=== PATIENT | female | born 1955 | race Caucasian/White ===

== ENCOUNTER 2017-01-18 01:44 | Inpatient (IN) | payer BC ==
[~2017-01-18] VITALS: Ht 312.4 cm; Wt 57.0 kg
[2017-01-18] VITALS (35 sets, daily range): BP systolic 80–132; BP diastolic 43–67; PULSE 70–112; RESP 10–20; Ht 312.4 cm; Wt 57.0 kg
[2017-01-18] MEDS: DEXTROSE 5%-0.45% NACL 1,000 ML IV SCH ×3 (02:00→21:50)
[2017-01-18] MEDS: ONDANSETRON 4 MG INJ IV PRN ×3 (02:15→11:30)
[2017-01-18] MEDS: HYDROmorphONE 1 MG/ML SYG IV PRN ×3 (02:16→08:59)
--- NOTE | 2017-01-18 02:27 | ERA ---
ER Documentation Chief Complaint Date/Time DATE: 01/18/17 TIME: 02:18 Chief Complaint ER to ER transfer for left hip and wrist fracture s/p fall, surgery in AM HPI This is a 61-year-old pleasant female who sustained a fall by losing her footing. She fell and was sent to another outside ER where she she was diagnosed with the left wrist Colles' fracture and a right hip fracture. The patient was there for 6 hours while I try to sort out insurance information. The patient was transferred here due to insurance reasons and because her primary care is here. Orthopedic surgeon notified from the outside ER is Dr. Robert. Patient said her pain is now controlled. She had sharp pain in the right hip and left wrist with movement and better with rest. Did not sustain any head injury neck injury chest or back pain ROS All systems reviewed and are negative except as per history of present illness. Allergies Allergies: Coded Allergies: Sulfa (Sulfonamide Antibiotics) (Verified Allergy, Unknown, 01/18/17) FmHx Family History: No coronary disease Physical Exam Vitals Vital Signs Date Time Temp Pulse Resp B/P Pulse Ox O2 Delivery O2 Flow Rate FiO2 01/18/17 01:45 99.2 90 17 124/67 97 Physical Exam Const: Well-developed, well-nourished Head: Atraumatic, normocephalic Eyes: Normal Conjunctiva, PERRLA, EOMI, normal sclera, no nystagmus ENT: Normal External Ears, Nose and Mouth, moist mucus membranes. Neck: Full range of motion. No meningismus, no lymphadenopathy. Resp: Clear to auscultation bilaterally, no wheezing, rhonchi, rales Cardio: Regular rate and rhythm, no murmurs, S1 S2 present Abd: Soft, non tender x 4, non distended. Normal bowel sounds, no guarding or rebound, no pulsitile abdominal masses or bruits Skin: No petechiae or rashes, no ecchymosis , no maculopapular rash Back: No midline or flank tenderness Ext: No cyanosis, or edema, FROM x 2, right hip with pain with movement better with rest left wrist is in a splint with deformity, normal inspection, neurovascularly intact x 4 Neur: Awake and alert, STR 5/5 x 4, sensation intact x 4, no focal findings, cerebellum intact Psych: Normal Mood and Affect Results 24 hrs Current Medications Medications (Trade) Dose Ordered Sig/Sanju Route PRN Reason Start Time Stop Time Status Last Admin Dose Admin Hydromorphone HCl (Dilaudid) 1 mg Q2H PRN IV PAIN LEVEL 4-7 01/18/17 02:00 01/18/17 02:16 Ondansetron HCl 4 mg 4 mg Q4H PRN IV NAUSEA AND/OR VOMITING 01/18/17 02:00 01/18/17 02:15 Dextrose/Sodium Chloride (D5-1/2ns) 1,000 ml @ 50 mls/hr Q20H IV 01/18/17 02:00 Procedures/MDM EKG: Rate/Rhythm: Normal sinus rhythm with bifascicular block QRS, ST, QT: NORMAL WI, QRS, QT] Impression: NORMAL EKG Admitting doctor has been notified and orders written. Departure Diagnosis: Primary Impression: Closed right hip fracture Qualified Code: S72.001A - Closed right hip fracture, initial encounter Additional Impression: Wrist fracture, left Qualified Code: S62.102A - Wrist fracture, left, closed, initial encounter Condition: Stable TYE EDGAR DO January 18, 2017 02:27
[2017-01-18 02:41] LABS: ADD SCAN DIFF NO
[2017-01-18 02:43] LABS: BASOPHILS % 0.2 % (0.0-2.0); EOSINOPHILS % 0.1 % (0.0-7.0); HEMATOCRIT 35.1 % (37.0-47.0); HEMOGLOBIN 11.5 g/dl (12.0-16.0); LYMPHOCYTES # 0.8 10^3/ul (0.8-2.9); LYMPHOCYTES % 9.9 % (15.0-51.0); MEAN CORPUSCULAR HGB CONC 32.8 g/dl (32.0-37.0); MEAN CORPUSCULAR VOLUME 88.6 fl (82.0-101.0); MONOCYTE # 0.3 10^3/ul (0.3-0.9); MONOCYTES % 3.7 % (0.0-11.0); NEUTROPHIL # 6.9 10^3/ul (1.6-7.5); NEUTROPHILS % 85.7 % (39.0-77.0); PLATELET COUNT 156 10^3/UL (140-415); RED BLOOD COUNT 3.96 10^6/ul (4.20-5.40)
[2017-01-18 02:59] LABS: CREATININE 0.75 mg/dl (0.44-1.00); INR 0.97; PROTIME 12.9 Sec (12.2-14.2)
[2017-01-18] MEDS ORDERED: OXYC-279 PO (02:59)
[2017-01-18] MEDS ORDERED: ONDA4TAB14 PO (02:59)
[2017-01-18 03:00] LABS: CALCIUM 9.1 mg/dl (8.4-10.2); PARTIAL THROMBOPLASTIN TIME 26.4 Sec (25.0-35.0)
--- NOTE | 2017-01-18 04:23 | RADRPT ---
PROCEDURE: XR Chest. CLINICAL INDICATION: Preoperative evaluation prior to general anesthesia TECHNIQUE: Portable single view of the chest COMPARISON: None. FINDINGS: The heart size is top normal. Slight aortic calcification is seen. No acute infiltrate, pleural ef fusion, or overt congestive heart failure is seen. Minimal degenerative change of the spine. IMPRESSION: No definite acute pulmonary disease. . Slight aortic calcification. RPTAT: HLBE Lani Mo Physician Date Time Electronically viewed and signed by Lani Mo, Physician on 01/18/2017 04:22 SARAH/
[2017-01-18] MEDS ORDERED: EXPAREL NOTE (BUPIVICAINE LIPOSOMAL) XX SCH (07:30)
[2017-01-18] MEDS ORDERED: PREGABALIN 300 MG PO X1 PO ONE (07:30)
[2017-01-18] MEDS ORDERED: traMADOL 50 MG TAB X 1 DOSE PO ONE (07:30)
[2017-01-18] MEDS ORDERED: CEFAZOLIN 2GM/50 ML (PMX) 50 ML X1 BEFORE INCISION IVPB ONE (07:30)
[2017-01-18] MEDS ORDERED: CEFAZOLIN 2 GM/50 ML (PMX) 50 ML IVPB ONE (07:30)
[2017-01-18] MEDS ORDERED: BUPIVACAINE LIPOSOME/PF 266 MG/20 ML VIAL INFIL ONE (07:30)
[2017-01-18] MEDS ORDERED: PAIN COCKTAIL-CEFUROXIME IRR ONE ×7 (07:30)
[2017-01-18] MEDS ORDERED: oxyCODONE (CR) 10 MG TAB [oxyCONTIN] X1 DOSE PO ONE (07:30)
[2017-01-18] MEDS ORDERED: TRANEXAMIC ACID 570 MG in SOD CHLORIDE 0.9% 100 ML IVPB ONE ×6 (07:30→21:30)
[2017-01-18] MEDS ORDERED: LACTATED RINGER'S 1,000 ML IV SCH (07:30)
--- NOTE | 2017-01-18 08:37 | RADRPT ---
PROCEDURE: CT of the left hip CLINICAL INDICATION: Left hip pain, fracture TECHNIQUE: Axial images through the left hip without IV contrast. Coronal and sagittal reformats . Images were interpreted at an independent PACS workstation. CTDI 18.30 mGy DLP 440.32 mGy-cm One or more of the following dose reduction techniques were used: Automated exposure control Adjustment of the mA and / or kV according to patient size Use of iterative reconstruction technique. COMPARISON: Radiographs of the pelvis and left hip performed same day FINDINGS: There is an acute impacted very minimally-displaced subcapital femoral neck fracture (coronal 112, s agittal 11, axial 29). The fracture line involves both the medial and lateral cortices, with approx imately 2-3 mm of cortical offset laterally and no significant cortical offset medially. There are mild background degenerative changes of the left hip with small marginal osteophytes. The re is no additional fracture identified. There is no evidence of dislocation. There is a very smal l left hip joint effusion There is a Butler catheter in the bladder. There is no lymphadenopathy. There is sigmoid diverticul osis. Limited intrapelvic evaluation is otherwise unremarkable. IMPRESSION: 1. Acute impacted very minimally displaced subcapital femoral neck fracture as above. RPTAT: UU .Martin Nagel MD, MD Date Time Electronically viewed and signed by .Martin Nagel MD, MD on 01/18/2017 08:36 .K/
--- NOTE | 2017-01-18 08:55 | RADRPT ---
PROCEDURE: XR Pelvis. CLINICAL INDICATION: Injury TECHNIQUE: Single AP view performed. COMPARISON: No prior studies are available for comparison. FINDINGS: There is diffuse osteopenia. There is an acute minimally displaced left subcapital femoral fracture . The hip joints are unremarkable. The sacroiliac joints are unremarkable. The soft tissues are unr emarkable. IMPRESSION: Diffuse osteopenia Acute minimally displaced left subcapital femoral fracture RPTAT: HGDB .Adalid Mercado MD, MD Date Time Electronically viewed and signed by .Adalid Mercado MD, on 01/18/2017 08:55 .B/
--- NOTE | 2017-01-18 08:56 | RADRPT ---
PROCEDURE: XR left hip. CLINICAL INDICATION: Injury TECHNIQUE: AP and lateral views available for review. COMPARISON: None available FINDINGS: There is diffuse osteopenia. There is an acute minimally displaced left subcapital femoral fracture . The hip joints are unremarkable. The sacroiliac joints are unremarkable. The soft tissues are unr emarkable. IMPRESSION: Diffuse osteopenia Acute minimally displaced left subcapital femoral fracture RPTAT: HGDB .Adalid Mercado MD, MD Date Time Electronically viewed and signed by .Adalid Mercado MD, on 01/18/2017 08:55 .B/
--- NOTE | 2017-01-18 08:57 | RADRPT ---
PROCEDURE: XR left wrist. CLINICAL INDICATION: Wrist pain TECHNIQUE: Three views are available for review. COMPARISON: No prior studies are available for comparison. FINDINGS: A splint is in place. There is an acute nondisplaced impacted distal radial fracture .There is an a cute ulnar styloid avulsion fracture. The osseous structures are otherwise normal in mineralization, architecture and alignment. No osseo us lesions are identified. The joints are unremarkable. There is mild soft tissue swelling. IMPRESSION: Acute nondisplaced impacted distal radial fracture Acute ulnar styloid avulsion fracture RPTAT: HGDB .Adalid Mercado MD, Date Time Electronically viewed and signed by .Adalid Mercado MD, on 01/18/2017 08:57 .B/
--- NOTE | 2017-01-18 09:59 | PREOPHP ---
DATE OF ADMISSION: 01/18/2017 REASON FOR ADMISSION: Fall with left hip fracture and left wrist fracture. HISTORY OF PRESENT ILLNESS: This 61-year-old female fell yesterday after she lost her footing and tripped . She was taken to [facility] emergency room , where she was evaluated and found to have an impacted left hip fracture and left wrist Colles fracture. The patient was transferred here to [facility] for surgery to be done by Dr. Vitaliy Guthrie. The patient at this time is awake and alert. She is able to tell me her history. She says that she has had a history of mitral valve prolapse for years with mitral regurgitation. She sees Dr. Jamil Lam , a motorcycle technician , in [place] for her cardiac care . I do have her records from Dr. Lam's office . The patient is under the primary care of Dr. Spencer Joshi and I have spoken to him about her . The patient denies any chest pain or shortness of breath. She is being medicated for left hip and left wrist pain and seems comfortable . PAST MEDICAL HISTORY: Remarkable for: 1. Mitral valve prolapse with 2 to 3+ mitral regurgitation, mild tricuspid regurgitation. 2. History of recurrent acute diverticulitis. 3. Generalized anxiety disorder SURGICAL HISTORY 1. C-sections X 2 2. Rhinoplasty 3. Cosmetic eye surgery 4. Tonsillectomy age 1 ALLERGIES: SHE HAS AN ALLERGY TO SULFA DRUGS FAMILY HISTORY: Unremarkable. SOCIAL HISTORY: she does not smoke , is a former smoker ; drinks alcohol socially ; does not use illicit drugs REVIEW OF SYSTEMS: HEAD: Negative. EARS, NOSE AND THROAT: Negative. CARDIORESPIRATORY: See above, but no recent chest pain or shortness of breath. GASTROINTESTINAL: Negative except for a history of diverticulitis for which she was treated recently, but not currently on antibiotics. NEUROLOGIC: Negative. NEUROMUSCULAR: She denies any head trauma, loss of consciousness, focal neurologic deficits. CURRENT MEDICATIONS: She was on At[place]and but stopped PHYSICAL EXAMINATION: GENERAL: At this time reveals a well-developed female in no apparent distress. VITAL SIGNS: Temperature 99, pulse is 79, respirations 20, blood pressure 110/ 56, O2 saturation 93% on 2 liter nasal cannula. HEENT: Head normocephalic. Eyes: Extraocular muscles intact. Nose and mouth are normal. NECK: Supple. No neck vein distention. LUNGS: Clear to auscultation. HEART: Regular rhythm with a II/ systolic ejection murmur at the apex and radiates to the left axilla. ABDOMEN: Soft, nontender, no masses or megaly. EXTREMITIES: No peripheral edema. Pedal pulses are 2+ bilaterally. NEUROLOGIC: Grossly intact. No obvious focal neurologic deficits. DIAGNOSTIC DATA: Her EKG shows evidence of a right bundle branch block pattern and left anterior fascicular block. I did compare the previous EKG done on to the current EKG and there was no difference between the 2 EKG's IMPRESSION: This patient sustained a fall yesterday with a left hip fracture and left wrist fracture. She has been followed by Dr. Jamil Lam, a motorcycle technician in [place], and has been stable from a cardiac standpoint. She is cleared for surgery today. I will follow the patient along with you. Dictated By: WINDY TORRES MD, ND/NO Conf#: [id number] DID#: [id number] MTDChristelle
[2017-01-18] MEDS ORDERED: VANCOMYCIN 1 GM INJ ONE (11:36)
[2017-01-18] MEDS ORDERED: POLYMYXIN B 500000 UNIT INJ ONE (11:36)
[2017-01-18] MEDS ORDERED: METOCLOPRAMIDE 10 MG INJ IV ONE (12:00)
[2017-01-18] MEDS ORDERED: DEXAMETHASONE 4 MG/ML 1 ML INJ ONE (12:12)
[2017-01-18] MEDS ORDERED: CEFAZOLIN 1 GM INJ ONE (12:12)
[2017-01-18] MEDS ORDERED: METOCLOPRAMIDE 10 MG INJ ONE (12:12)
[2017-01-18] MEDS ORDERED: PROPOFOL 100 ML ONE (12:12)
[2017-01-18] MEDS ORDERED: FENTAnyl 50 MCG/ML VIAL ONE ×2 (12:12→12:28)
[2017-01-18] MEDS ORDERED: MIDAZOLAM 1 MG/ML 2 ML INJ ONE (12:12)
[2017-01-18 12:47] LABS: ADD UMIC YES; URINE BILIRUBIN (Dip) NEGATIVE (NEGATIVE); URINE BLOOD (Dip) 1+ (NEGATIVE); URINE COLOR LT. YELLOW (YELLOW); URINE GLUCOSE (Dip) NEGATIVE (NEGATIVE); URINE KETONES (Dip) NEGATIVE (NEGATIVE); URINE LEUKOCYTE ESTERASE (Dip) NEGATIVE (NEGATIVE); URINE NITRITE (Dip) NEGATIVE (NEGATIVE); URINE TOTAL PROTEIN (Dip) NEGATIVE (NEGATIVE); URINE UROBILINOGEN (Dip) 0.2 E.U./dL (0.1-1.0)
[2017-01-18] MEDS ORDERED: PHENYLephrine (100 MCG/ML) 5ML SYG ONE (13:08)
[2017-01-18] MEDS ORDERED: EPHEDrine SULFATE 50 MG/5 ML SYG IV PRN (13:19)
[2017-01-18 13:24] LABS: BACTERIA,URINE FEW; MUCUS,URINE FEW
--- NOTE | 2017-01-18 13:26 | CONS ---
DATE OF ADMISSION: 01/18/2017 DATE OF CONSULTATION: 01/18/2017 REASON FOR CONSULTATION: Left hip fracture. HISTORY OF PRESENT ILLNESS: The patient is a 61-year-old woman who had a mechanical fall yesterday in which she landed on her left hip. She has had pain in the left groin since the fall. She has been unable to bear weight on the left lower extremity. Prior to this event she had been ambulatory without a cane or a walker. She also fell on her left wrist at the time and was noted to have a left distal radius fracture, which was splinted. She was taken to [facility] Emergency Room, where she was stabilized and then transferred to [facility]. She has had no reported loss of consciousness. PAST MEDICAL HISTORY: History of diverticulitis. PAST SURGICAL HISTORY: section x2. MEDICATIONS: Atacand. ALLERGIES: NO KNOWN DRUG ALLERGIES. SOCIAL HISTORY: The patient does not smoke or drink. FAMILY HISTORY: Noncontributory. REVIEW OF SYSTEMS: GENERAL/CONSTITUTIONAL: Negative for recent fevers, chills, decreased appetite , fatigue, or unexplained weight loss. EYES/EARS/NOSE/MOUTH/THROAT: Negative for headaches, double vision, tearing, nose bleeding, colds, obstruction, discharge, dental difficulties, gingival bleeding, dentures, neck stiffness, pain, tenderness, or masses in thyroid or other areas. CARDIOVASCULAR: Negative for chest pain, palpitations, irregular heartbeat, syncope, dyspnea on exertion, orthopnea, nocturnal paroxysmal dyspnea. RESPIRATORY: Negative for shortness of breath, wheezing, stridor, hemoptysis, tuberculosis, fever, or night sweats. GASTROINTESTINAL: Negative for dysphagia, abdominal pain, heartburn, nausea, vomiting, hematemesis, jaundice, constipation, diarrhea, abnormal stools (elizabeth- colored, tarry, bloody, greasy, foul-smelling), or bright red blood per rectum. GENITOURINARY: Negative for urgency, frequency, dysuria, nocturia, hematuria, stones, infections, nephritis, hesitancy, change in size of stream, dribbling, acute retention, or incontinence. MUSCULOSKELETAL: Negative for pain, swelling, redness or heat of muscles or joints, limitation of motion, muscular weakness, atrophy, or cramps. NEUROLOGIC/PSYCHIATRIC: Negative for convulsions, paralyses, tremor, incoordination, paresthesias, difficulties with memory or speech, sensory or motor disturbances, muscular coordination (ataxia, tremor), emotional problems, anxiety, depression, previous psychiatric care, unusual perceptions, or hallucinations. HEMATOLOGIC: Negative for anemia, bleeding tendency, previous transfusions and reactions, or Rh incompatibility. ENDOCRINE: Negative for polydipsia, polyuria, hormone therapy, or intolerance to heat or cold. PHYSICAL EXAMINATION: VITAL SIGNS: Temperature 98.7, blood pressure 116/58, pulse 95, respiratory rate 18. GENERAL APPEARANCE: Well-developed, well-nourished female in no acute distress. ORIENTATION: Alert and oriented to person, place, and time. HEENT: Normocephalic, atraumatic, sclerae anicteric, no nasal discharge, oropharynx clear, dentition is good. SKIN: Normal color, texture, and turgor. No rashes noted throughout the trunk, bilateral upper extremities, and bilateral lower extremities. NECK: Supple, nontender, without lymphadenopathy. No thyromegaly, no masses. CARDIAC: Regular rate and rhythm. LUNGS: Clear to auscultation bilaterally, with symmetric chest rise. ABDOMEN: Soft, nontender, nondistended. MUSCULOSKELETAL EXAM: The left wrist is splinted, with mild tenderness over the distal radius. The neurovascular exam in the left upper extremity is normal. Her pelvis is stable to compression and rocking. The left hip has pain with attempted passive range of motion. The he left hip skin is intact. Thigh is soft. The right hip is supple. No pain on passive range of motion. Both knees are supple, with no pain on passive range of motion. NEUROVASCULAR EXAM,LOWER EXTREMITY: Motor strength is 5/5 in the quadriceps, tibialis anterior, extensor hallucis longus, gastroc-soleus, and peroneals bilaterally. Sensation is intact to light touch throughout both lower extremities. There are 2+ palpable dorsalis pedis and posterior tibial pulses, with capillary refill less than 2 seconds in all 5 digits bilaterally. There is no distal edema. IMAGING: X-rays brought on a disk from [facility] dated 01/17/2017 include an AP pelvis and lateral view of the left hip. The quality is somewhat poor. There does appear to be a valgus impacted femoral neck fracture with some displacement, but the image quality is not ideal. There is also a comminuted distal radius fracture with some mild impaction, but on the lateral view the alignment is neutral. LABORATORY DATA: Reveals a white blood cell count of 8.0, hematocrit 35.1, platelet count 156. INR 0.97, PTT 26.4. BUN 15, creatinine 0.75. ASSESSMENT AND PLAN: 1. Left femoral neck fracture. 2. Left distal radius fracture. DISCUSSION: The patient has a left femoral neck fracture which will require surgical intervention. The images brought in on CD are suboptimal. I am going to repeat x-rays here, including an AP pelvis and lateral view of the left hip, as well as a CT scan with 3-mm cuts with sagittal and coronal reconstructions. If there is displacement, then I would recommend proceeding with an anterior total hip arthroplasty. If there is no displacement, then this may be amenable to pinning with 3 cannulated screws. We will keep the patient n.p.o. in anticipation of surgery later today. If we proceed with hip replacement surgery , I have explained the risks of surgery to include, but not be limited to, bleeding and possible need for blood transfusion, infection, pain, stiffness, neurovascular injury, possible numbness, weakness, and/or paralysis anywhere from the hip down to the toes, fracture, instability, dislocation, leg length inequality, wear and/or loosening of the prosthesis, need for revision at a later date, wound healing problems, blood clots, pulmonary embolism, and anesthetic complications such as heart attack, stroke, GI bleed, pneumonia and/ or . Ample time was allowed for the patient to ask questions, all of which were addressed and answered. She understands the risks and wishes to proceed. If we proceed with pinning, I have explained the risks to include, but not be limited to, bleeding, infection, pain, stiffness, malunion, nonunion , need for additional future surgery including conversion to a total hip arthroplasty, wound healing problems, blood clots, pulmonary embolism, and anesthetic complications such as heart attack, stroke, GI bleed, pneumonia and/ or . We will keep her n.p.o. She will be evaluated by Dr. Torres for preoperative medical clearance. As for the left distal radius fracture, I will keep her splinted for now. I am going to ask one of my colleagues who is an upper extremity specialist to see her for further evaluation and decision- making as to whether this needs surgical intervention or not. Dictated By: TANIKA SALINAS MD EZ/NTS Conf#: [id number] DID#: [id number] CC: WINDY TORRES MD;*EndCC* MTDD
[2017-01-18] MEDS ORDERED: EPHEDrine SULFATE 50 MG/5 ML SYG ONE (13:27)
[2017-01-18] MEDS ORDERED: BACITRACIN 50000 UNITS INJ IRR ONE (14:46)
[2017-01-18] MEDS ORDERED: DIPHENHYDRAMINE 50 MG INJ IV PRN (15:00)
[2017-01-18] MEDS ORDERED: METOCLOPRAMIDE 10 MG INJ IV PRN (15:00)
[2017-01-18] MEDS ORDERED: ONDANSETRON 4 MG INJ IV PRN ×2 (15:00→15:30)
[2017-01-18] MEDS ORDERED: MEPERIDINE 25 MG INJ IV PRN (15:00)
[2017-01-18] MEDS ORDERED: HYDROmorphONE (0.2 MG/ML) 10ML SYG IV PRN ×3 (15:00)
[2017-01-18] MEDS: traMADol 50 MG TAB PO SCH ×2 (15:00→18:00)
--- NOTE | 2017-01-18 15:08 | OPR ---
Date/Time of Note Date/Time of Note DATE: 01/18/17 TIME: 15:07 Operative Report Free Text/Dictation Dictation # [id number] Procedure Date: January 18, 2017 Preoperative Diagnosis Left Femoral Neck Fracture Postoperative Diagnosis Same Operation Performed Left Anterior JUVE Surgeon: TANIKA SALINAS MD assistant prosecuting attorney: LUKE LAMAS PA-C Anesthesia: general, spinal Anesthesiologist: CRYSTAL GOODSON MD Estimated Blood Loss: 250 - 300 ml's Specimens Femoral Head Tubes/Drains Hemovac x 1 Complications: None Pt Condition Post Procedure: stable Disposition: PACU TANIKA SALINAS MD January 18, 2017 15:08
--- NOTE | 2017-01-18 15:16 | OPR ---
DATE OF OPERATION: 01/18/2017 PREOPERATIVE DIAGNOSIS: Left femoral neck fracture. POSTOPERATIVE DIAGNOSIS: Left femoral neck fracture. OPERATION PERFORMED: Left anterior total hip arthroplasty. SURGEON: Tanika Guthrie MD FABRICATION LEAD: LUKE LINTON. COMPONENTS USED: DePuy size 48 mm Gription Watson cup, 48/32 neutral AltrX polyethylene liner, size 4 standard Actif stem, 32+9 ceramic head. ANESTHESIA: Spinal plus general endotracheal intubation plus periarticular injection. ANESTHESIOLOGIST: CRYSTAL GOODSON MD. ESTIMATED BLOOD LOSS: 300 mL. INTRAVENOUS FLUIDS: Two liters of crystalloid. SPECIMENS: Femoral head. DRAINS: Hemovac x1. COMPLICATIONS: None. DISPOSITION: The patient tolerated procedure well in stable condition. INDICATIONS: The patient is a 61-year-old woman who had a mechanical fall and sustained a minimally displaced left subcapital femoral neck fracture. I felt she would benefit from a total hip arthroplasty through an anterior approach. I felt the patient would benefit from a total hip arthroplasty through an anterior approach. The risks, benefits, and alternatives of the procedure were explained in detail to the patient. I explained the risks of the surgery to include, but not be limited to: bleeding and possible need for blood transfusion; infection; pain; stiffness; neurovascular injury with possible numbness, weakness, and/or paralysis anywhere from the hip down to the toes; fracture; instability; dislocation; leg length inequality; wear and/or loosening of the prosthesis and possible need for future revision; blood clots; pulmonary embolism; and anesthetic complications such as heart attack, stroke, GI bleed, pneumonia, and/ or . Ample time was allowed for the patient to ask questions, all of which were addressed and answered. The patient understood the risks involved and wished to proceed. Informed consent was signed prior to the procedure. PROCEDURE: The patient's left hip was initialed with a marking pen in the preoperative area to identify the correct operative site. The patient was brought to the operating room and [facility] where a spinal anesthetic was administered. The patient was then anesthetized and intubated. A Butler catheter was placed. Both feet were placed into well padded boots which were then placed into the leg holders of the traction booms. A timeout was performed to confirm that the left side was the correct operative site. The patient was given 2 g of intravenous Ancef within one hour prior to the procedure. The operative hip was prepped and draped in the usual sterile fashion. A 10 cm oblique incision was made over the anterior aspect of the hip and carried down through subcutaneous tissue and fat with sharp dissection. The tensor fascia devan was incised along the length of the wound. The tensor fascia muscle was retracted laterally and the sartorius medially. The anterior circumflex vessels were identified and tied off with 2-0 silk suture and coagulated with the [employer] Link computer education teacher. The rectus femoris was elevated off the anterior capsule and an anterior capsulectomy performed. The femoral neck fracture was identified. A femoral neck osteotomy was made and the head removed from the acetabulum. Retractors were placed around the acetabulum. The remnants of the labrum and ligamentum teres were excised. I reamed the acetabulum to the medial wall and then went into an anatomic position and increased the reamer size in 2 mm increments until I got a good bite and was down to bleeding subchondral bone. The Watson cup was opened and impacted into the acetabulum and sat flush circumferentially, getting a good bite. C-arm imaging showed it had about 40 to 45 degrees of abduction and 20 degrees of anteversion. The real liner was opened and impacted into the acetabulum and sat flush circumferentially. Attention was turned towards the femur. The operative leg was carefully lowered to the floor with the leg adducted. The foot was then externally rotated to approximately 110 degrees. A posteromedial release was performed to optimize exposure. The femoral hook was placed underneath the proximal femur and the hydraulic lift was then used to elevate the femur up out of the wound. The cookie cutter osteotome was used to remove the remaining overhanging greater trochanter. The femur was then broached, going up in one size increments until it sat flush with the neck cut and a stable fit was achieved. The trial neck and head were assembled and reduced into the acetabulum. Fluoroscopic imaging showed the components to be in good position and the leg lengths and offsets to be equal. At this point, the trial was dislocated and the trial broach removed. The canal was irrigated and dried. The real stem was opened and impacted into the femur. The trunnion was irrigated and dried, and the real femoral head was impacted onto the trunnion, and reduced into the acetabulum. The soft tissues were infiltrated with a mixture of 150 mg of 0.5% Bupivacaine, 8 mg of Duramorph, 300 mcg of epinephrine, 30 mg of Toradol, 100 mcg of clonidine, 750 mg of cefuroxime and 86 mL of normal saline, followed by an injection of 266 mg of liposomal Bupivacaine. At this point the hip was irrigated with a mixture of betadine/saline and then antibiotic saline with pulsatile lavage. A Hemovac drain was placed in the deep portion of the wound and brought out the anterolateral thigh. There was good hemostasis. The tensor fascia devan was repaired with a running #1 Vicryl. The deep fat layer was irrigated and closed with 2-0 Stratafix and the subcutaneous layer closed with 3 -0 Vicryl and the skin was closed with joe and then sealed with Dermabond. The drain was secured with 3-0 nylon. The sponge and needle counts were correct at the end of the case. The wound was covered with an occlusive dressing. The patient was awakened, extubated, and taken to the recovery room in stable condition. Dictated By: TANIKA ALMEIDA/NO Conf#: [id number] DID#: [id number] KAITY
[2017-01-18] MEDS ORDERED: NA PHOSPHATE/BIPHOS 133 ML ENEMA PR PRN (15:30)
[2017-01-18] MEDS ORDERED: ASPIRIN (EC) 325 MG TAB PO ONE (15:30)
[2017-01-18] MEDS ORDERED: BISACODYL 10 MG SUPP PR PRN (15:30)
[2017-01-18] MEDS ORDERED: MAGNESIUM HYDROXIDE 30ML CUP PO PRN (15:30)
[2017-01-18] MEDS ORDERED: NACL 0.9% 3 ML SYG IV SCH (15:30)
[2017-01-18] MEDS ORDERED: DIPHENHYDRAMINE 25 MG CAP PO PRN (15:30)
[2017-01-18] MEDS ORDERED: HYDROCODONE/APAP (5/325) TAB PO PRN ×2 (15:30)
[2017-01-18] MEDS ORDERED: BACITRACIN 50000 UNITS INJ ONE (15:52)
[2017-01-18 16:12] LABS: HEMATOCRIT 30.6 % (37.0-47.0); HEMOGLOBIN 9.9 g/dl (12.0-16.0)
--- NOTE | 2017-01-18 16:23 | RADRPT ---
PROCEDURE: XR Hip. CLINICAL INDICATION: Postoperative examination TECHNIQUE: AP view of the left hip was performed. COMPARISON: 01/18/2017 FINDINGS: The patient is status post left total hip arthroplasty. Hardware appears intact and in appropriate position. There is overlying subcutaneous gas, and a surgical drain. There are skin joe. IMPRESSION: Status post left hip arthroplasty. Intact hardware and near anatomic alignment. RPTAT: DD .Federico Munoz MD, MD Date Time Electronically viewed and signed by .Federico Munoz MD, on 01/18/2017 16:22 .T/
--- NOTE | 2017-01-18 16:25 | RADRPT ---
PROCEDURE: XR Pelvis. CLINICAL INDICATION: Postoperative, left hip arthroplasty TECHNIQUE: Single AP view of the pelvis. COMPARISON: 01/18/2017 FINDINGS: There is diffuse bony demineralization. The patient is status post left hip arthroplasty. Hardware is intact and appropriate in position. There is overlying subcutaneous gas and a surgical drain. The sacroiliac joints are normal. IMPRESSION: Status post left hip arthroplasty. Intact hardware and near anatomic alignment. RPTAT: DD .Federico Munoz MD, MD Date Time Electronically viewed and signed by .Federico Munoz MD, MD on 01/18/2017 16:24 .T/
[2017-01-18 16:26] LABS: POTASSIUM 4.2 mmol/L (3.5-5.1)
--- NOTE | 2017-01-18 16:27 | RADRPT ---
PROCEDURE: Intraoperative fluoroscopic examination, LT HIP REPLACEMENT CLINICAL INDICATION: Left hip fracture TECHNIQUE: Multiple fluoroscopic views of the left hip were obtained intraoperatively COMPARISON: X-ray 01/18/2017 FINDINGS: 12 fluoroscopic images of the left hip are stored, demonstrating placement of a left hip arthroplast y.. A total of 0.6 minutes of fluoroscopic time was utilized. IMPRESSION: Fluoroscopic guidance for left hip arthroplasty. RPTAT: DD .Federico Munoz MD, Date Time Electronically viewed and signed by .Federico Munoz MD, on 01/18/2017 16:26 .T/
[2017-01-18 16:28] LABS: CREATININE 0.78 mg/dl (0.44-1.00)
[2017-01-18 16:29] LABS: CALCIUM 8.5 mg/dl (8.4-10.2)
--- NOTE | 2017-01-18 17:33 | PN ---
Date/Time of Note Date/Time of Note DATE: 01/18/17 TIME: 17:32 Assessment/Plan Lines/Catheters IV Catheter Type (from Nrsg): Saline Lock Francois in Place (from Nrsg): Yes Assessment/Plan Assessment/Plan Stable in PACU, s/p left anterior JUVE -continue Ancef -pain meds as needed -ASA/SCDs for DVT prophylaxis -OOB with PT -monitor drain -check AM labs -d/c francois in AM XR of the left hip is pending at this time Subjective 24 Hr Interval Summary Stable in PACU. Minimal pain. Moving all extremities. Exam/Review of Systems Vital Signs Vitals Vital Signs Date Time Temp Pulse Resp B/P Pulse Ox O2 Delivery O2 Flow Rate FiO2 01/18/17 16:25 102 13 117/62 100 Nasal Cannula 3.0 01/18/17 15:38 98.0 Intake and Output 01/17/17 01/17/17 01/18/17 15:00 23:00 07:00 Intake Total 90 ml Output Total 350 ml Balance -260 ml Exam Free Text/Dictation Hemovac: minimal Dressing dry Incision clean, dry, and intact without redness or drainage 12/29 Quadriceps, Tibialis Anterior, EHL, Gastroc, Soleus, Peroneals Normal sensation Palpable DT/PT, CR <2 sec No distal edema Results Result Diagram: 01/18/17 1606 01/18/17 1606 LUKE LAMAS PA-C January 18, 2017 17:33
[2017-01-18] MEDS: CEFAZOLIN 2 GM/50 ML (PMX) 50 ML IVPB SCH (17:52)
[2017-01-18] MEDS: LACTATED RINGER'S 1,000 ML IV SCH ×2 (17:54→23:18)
[2017-01-18] MEDS: PANTOPRAZOLE (EC) 40 MG TAB PO SCH (18:00)
[2017-01-18] MEDS: DOCUSATE SODIUM 100 MG CAP PO SCH (21:00)
[2017-01-19] MEDS: traMADol 50 MG TAB PO SCH ×5 (00:06→23:22)
[2017-01-19] MEDS: CEFAZOLIN 2 GM/50 ML (PMX) 50 ML IVPB SCH ×2 (00:10→08:34)
[2017-01-19 04:57] LABS: HEMATOCRIT 25.7 % (37.0-47.0); HEMOGLOBIN 8.4 g/dl (12.0-16.0)
[2017-01-19 05:21] LABS: CALCIUM 8.7 mg/dl (8.4-10.2); CREATININE 0.74 mg/dl (0.44-1.00); POTASSIUM 4.3 mmol/L (3.5-5.1)
[2017-01-19] MEDS: PANTOPRAZOLE (EC) 40 MG TAB PO SCH ×2 (05:34→17:37)
[2017-01-19] MEDS: LACTATED RINGER'S 1,000 ML IV SCH ×4 (05:35→23:18)
[2017-01-19 08:00] VITALS: BP 112/56; RESP 18
[2017-01-19] MEDS: DOCUSATE SODIUM 100 MG CAP PO SCH ×2 (08:34→20:38)
[2017-01-19] MEDS: ASPIRIN (EC) 325 MG TAB PO SCH ×2 (08:34→20:38)
--- NOTE | 2017-01-19 09:53 | PN ---
Date/Time of Note Date/Time of Note DATE: 01/19/17 TIME: 09:51 Assessment/Plan Lines/Catheters IV Catheter Type (from Nrsg): Peripheral IV Butler in Place (from Nrsg): Yes Assessment/Plan Assessment/Plan Stable POD #1, s/p left anterior JUVE -d/c Ancef -pain meds as needed -ASA/SCDs for DVT prophylaxis -OOB with PT -drain removed -check AM labs -discharge planning. Will plan to go home upon discharge Subjective 24 Hr Interval Summary No acute overnight events. Having only mild pain. Did not start PT yet. H&H low but will monitor for now. VSS, afebrile. Will plan to go home upon discharge. Exam/Review of Systems Vital Signs Vitals Vital Signs Date Time Temp Pulse Resp B/P Pulse Ox O2 Delivery O2 Flow Rate FiO2 01/19/17 08:00 98.3 89 18 112/56 99 01/19/17 03:02 2.0 01/18/17 22:15 Nasal Cannula Intake and Output 01/18/17 01/18/17 01/19/17 15:00 23:00 07:00 Intake Total 211.4 ml 2161.4 ml 1875 ml Output Total 500 ml 900 ml Balance 211.4 ml 1661.4 ml 975 ml Exam Free Text/Dictation Dressing dry Incision clean, dry, and intact without redness or drainage 12/29 Quadriceps, Tibialis Anterior, EHL, Gastroc, Soleus, Peroneals Normal sensation Palpable DT/PT, CR <2 sec No distal edema Results Result Diagram: 01/19/17 04301/19/17 043 LUKE LAMAS PA-C January 19, 2017 09:52
--- NOTE | 2017-01-19 09:55 | CONS ---
Date/Time of Note Date/Time of Note DATE: 01/19/17 TIME: 09:50 Assessment/Plan Assessment/Plan Chief Complaint/Hosp Course 1. she is 1 day post op a L JUVE for hip fracture . VS are stable 2. she is doing well and is going to start PT now . 3. H/H is lower , will recheck tomorrow . Problems: Consultation Date/Type/Reason Admit Date/Time January 18, 2017 at 02:08 Initial Consult Date 24 HR Interval Summary Free Text/Dictation She is awake and alert . She is feeling better .She is having pain in L wrist . Exam/Review of Systems Vital Signs Vitals Vital Signs Date Time Temp Pulse Resp B/P Pulse Ox O2 Delivery O2 Flow Rate FiO2 01/19/17 08:00 98.3 89 18 112/56 99 01/19/17 03:02 2.0 01/18/17 22:15 Nasal Cannula Intake and Output 01/18/17 01/18/17 01/19/17 15:00 23:00 07:00 Intake Total 211.4 ml 2161.4 ml 1875 ml Output Total 500 ml 900 ml Balance 211.4 ml 1661.4 ml 975 ml Exam Psych: nl mood/affect, no complaints Respiratory: clear to auscultation, normal air movement Cardiovascular: nl pulses, regular rate and rhythm Musculoskeletal: nl extremities to inspection Results Result Diagram: 01/19/17 0432 01/19/17 0432 Results 24 hrs Laboratory Tests Test 01/18/17 10:00 01/18/17 16:06 01/19/17 04:32 Urine Color LT. YELLOW Urine Clarity CLEAR Urine pH 6.0 Urine Specific [place] 1.025 Urine Ketones NEGATIVE Urine Nitrite NEGATIVE Urine Bilirubin NEGATIVE Urine Urobilinogen 0.2 E.U./dL Urine Leukocyte Esterase NEGATIVE Urine Microscopic RBC 2-5 Urine Microscopic WBC 2-5 Urine Epithelial Cells FEW Urine Bacteria FEW Urine Mucus FEW Urine Hemoglobin 1+ H Urine Glucose NEGATIVE Urine Total Protein NEGATIVE Hemoglobin 9.9 L 8.4 L Hematocrit 30.6 L 25.7 L Sodium Level 138 136 Potassium Level 4.2 4.3 Chloride Level 104 106 Carbon Dioxide Level 25 27 Anion Gap 13 7 L Blood Urea Nitrogen 13 12 Creatinine 0.78 0.74 Glucose Level 142 130 Calcium Level 8.5 8.7 Medications Medications Current Medications Hydromorphone HCl 1 mg 1 mg Q2H PRN IV PAIN LEVEL 4-7 Last administered on 01/18 08:59; Admin Dose 1 MG; Start 01/18/17 at 02:00 Dextrose/Sodium Chloride 1,000 ml @ 50 mls/hr Q20H IV Last administered on 03:45; Admin Dose 50 MLS/HR; Start 01/18/17 at 02:00 Lactated Ringer's (Lr) 1,000 ml @ 125 mls/hr Q8H IV Last administered on 05:35; Admin Dose 125 MLS/HR; Start 01/18/17 at 15:18 Tramadol HCl (Ultram) 50 mg Q6 PO Last administered on 01/19/17 05:34; Admin Dose 50 MG; Start 01/18/17 at 15:00; Stop 01/21/17 at 14:59 Acetaminophen/ Hydrocodone Bitart ([place] (5/325)) 1 tab Q4H PRN PO PAIN LEVEL 1 -3; Start 01/18/17 at 15:30 Acetaminophen/ Hydrocodone Bitart ([place] (5/325)) 2 tab Q4H PRN PO PAIN LEVEL 4 -7; Start 01/18/17 at 15:30 Hydromorphone HCl (Dilaudid) 1 mg Q3H PRN IV PAIN LEVEL 8-10; Start 01/18/17 at 15:30 Ondansetron HCl (Zofran Inj) 4 mg Q6H PRN IV NAUSEA AND/OR VOMITING; Start at 15:30 Bisacodyl (Dulcolax Supp) 10 mg Q12H PRN [place] CONSTIPATION; Start 01/18/17 at 15: 30 Magnesium Hydroxide (Milk Of Mag) 30 ml BID PRN PO CONSTIPATION; Start at 15:30 Sodium Biphosphate/ Sodium Phosphate (Fleet Enema) 133 ml DAILY PRN [place] CONSTIPATION; Start 01/18/17 at 15:30 Docusate Sodium (Colace) 100 mg BID PO Last administered on 01/19/17 08:34; Admin Dose 100 MG; Start 01/18/17 at 21:00 Diphenhydramine HCl (Benadryl) 25 mg Q6H PRN PO PRURITUS; Start 01/18/17 at 15: 30 Aspirin (Ecotrin) 325 mg BID PO Last administered on 01/19/17 08:34; Admin Dose 325 MG; Start 01/19/17 at 09:00 Pantoprazole (Protonix Tab) 40 mg BID@06,18 PO Last administered on 01/19/17 05:34; Admin Dose 40 MG; Start 01/18/17 at 18:00 WINDY TORRES MD January 19, 2017 09:55
--- NOTE | 2017-01-19 10:30 | PDOCDIS ---
Discharge Instructions DIAGNOSIS Discharge Diagnosis: s/p left anterior JUVE CONDITION Patient Condition: Good HOME CARE INSTRUCTIONS: Diet Instructions: Regular ACTIVITY: Activity Restrictions: Slowly Increase Activity Rest between Activity Avoid heavy lifting Do not operate Machinery Do not operate Power Tool Avoid Heavy Housework Keep Limb Elevated Bathing Restrictions: Shower FOLLOW UP/APPOINTMENTS Appointments follow up in the office on 01/29/17 OTHER ORDERS: Other Orders: S/P Anterior JUVE Physical Therapy: Three times per week at home x 2 weeks Daily in Rehab/SNF WB STATUS: WBAT Strengthening exercises for both upper and un-operated lower extremities. 1. Gait training with front wheeled walker 2. Wide base gait, no pivot turns. 3. Abductor strengthening. 4. Quadriceps and hamstring strengthening. 5. May switch to cane in contra lateral hand 6 weeks after surgery. 6. Physical Therapy can open case if nursing is not available. 7. Ice Packs while at rest to surgical wound for 20 minutes, 3 times/day. 8. Patient requires mobile SCDs to reduce risk of developing DVT following JUVE. Patient will use the mobile SCDs for 30 days postoperatively. Hip Precautions: No posterior hip precautions. Bathing assistance by home health aide twice weekly if Medicare patient. Occupational Therapy: Evaluation for assistive devices and ADL training. Wound Care: Keep incision dry & covered with Tegaderm until first visit with Dr. Guthrie Anticoagulation Orders: Enteric Coated Aspirin 325 mg po bid x 6 weeks from date of surgery Follow-up:Call for an appointment with Dr. Guthrie in 1 week after discharged from hospital at DME Orders: SALVADOR, 3-in-1 Commode, Mobile SCDs LUKE LAMAS PA-C January 19, 2017 10:30
[2017-01-19] MEDS ORDERED: TRAM50TA2 PO (10:31)
[2017-01-19] MEDS ORDERED: HYDR-3498 PO (10:31)
[2017-01-19] MEDS ORDERED: ASPI325T32 PO (10:31)
[2017-01-19] MEDS ORDERED: PANT40TA4 PO (10:31)
[2017-01-19 13:04] LABS: ADD UMIC YES; URINE BILIRUBIN (Dip) NEGATIVE (NEGATIVE); URINE BLOOD (Dip) NEGATIVE (NEGATIVE); URINE COLOR LT. YELLOW (YELLOW); URINE GLUCOSE (Dip) NEGATIVE (NEGATIVE); URINE KETONES (Dip) NEGATIVE (NEGATIVE); URINE LEUKOCYTE ESTERASE (Dip) TRACE (NEGATIVE); URINE NITRITE (Dip) NEGATIVE (NEGATIVE); URINE TOTAL PROTEIN (Dip) NEGATIVE (NEGATIVE); URINE UROBILINOGEN (Dip) 0.2 E.U./dL (0.1-1.0)
[2017-01-19 13:15] LABS: BACTERIA,URINE RARE; URINE RBCS NONE SEEN /HPF (0)
[2017-01-19] MEDS: HYDROmorphONE 1 MG/ML SYG IV PRN (13:25)
--- NOTE | 2017-01-19 13:59 | PN ---
Date/Time of Note Date/Time of Note DATE: 01/19/17 TIME: 13:56 Assessment/Plan VTE Prophylaxis VTE Prophylaxis Intervention: ambulation Lines/Catheters IV Catheter Type (from Nrsg): Peripheral IV Urinary Cath still in place: Yes Subjective 24 Hr Interval Summary Free Text/Dictation Anesthesia Note: A 61 year female s/p left hip arthroplasty under GA and spinal pod #1 is doing fine. pain is controlled, noN/V, itchng, headache, back pain. care per surgery team Exam/Review of Systems Vital Signs Vitals Vital Signs Date Time Temp Pulse Resp B/P Pulse Ox O2 Delivery O2 Flow Rate FiO2 01/19/17 08:00 98.3 89 18 112/56 99 01/19/17 03:02 2.0 01/18/17 22:15 Nasal Cannula Intake and Output 01/18/17 01/18/17 01/19/17 15:00 23:00 07:00 Intake Total 211.4 ml 2161.4 ml 1875 ml Output Total 500 ml 900 ml Balance 211.4 ml 1661.4 ml 975 ml Results Result Diagram: 01/19/17 0432 01/19/17 0432 Results 24 hrs Laboratory Tests Test 01/18/17 16:06 01/19/17 04:32 01/19/17 05:05 Hemoglobin 9.9 L 8.4 L Hematocrit 30.6 L 25.7 L Sodium Level 138 136 Potassium Level 4.2 4.3 Chloride Level 104 106 Carbon Dioxide Level 25 27 Anion Gap 13 7 L Blood Urea Nitrogen 13 12 Creatinine 0.78 0.74 Glucose Level 142 130 Calcium Level 8.5 8.7 Urine Color LT. YELLOW Urine Clarity CLEAR Urine pH 6.0 Urine Specific [place] <=1.005 L Urine Ketones NEGATIVE Urine Nitrite NEGATIVE Urine Bilirubin NEGATIVE Urine Urobilinogen 0.2 E.U./dL Urine Leukocyte Esterase TRACE H Urine Microscopic RBC NONE SEEN Urine Microscopic WBC 0-2 Urine Bacteria RARE Urine Hemoglobin NEGATIVE Urine Glucose NEGATIVE Urine Total Protein NEGATIVE Medications Medications Current Medications Hydromorphone HCl 1 mg 1 mg Q2H PRN IV PAIN LEVEL 4-7 Last administered on 01/18 08:59; Admin Dose 1 MG; Start 01/18/17 at 02:00 Dextrose/Sodium Chloride 1,000 ml @ 50 mls/hr Q20H IV Last administered on 03:45; Admin Dose 50 MLS/HR; Start 01/18/17 at 02:00 Lactated Ringer's (Lr) 1,000 ml @ 125 mls/hr Q8H IV Last administered on 05:35; Admin Dose 125 MLS/HR; Start 01/18/17 at 15:18 Tramadol HCl (Ultram) 50 mg Q6 PO Last administered on 01/19/17 05:34; Admin Dose 50 MG; Start 01/18/17 at 15:00; Stop 01/21/17 at 14:59 Acetaminophen/ Hydrocodone Bitart ([place] (5/325)) 1 tab Q4H PRN PO PAIN LEVEL 1 -3; Start 01/18/17 at 15:30 Acetaminophen/ Hydrocodone Bitart ([place] (5/325)) 2 tab Q4H PRN PO PAIN LEVEL 4 -7; Start 01/18/17 at 15:30 Hydromorphone HCl (Dilaudid) 1 mg Q3H PRN IV PAIN LEVEL 8-10 Last administered on 01/19/17 13:25; Admin Dose 1 MG; Start 01/18/17 at 15:30 Ondansetron HCl (Zofran Inj) 4 mg Q6H PRN IV NAUSEA AND/OR VOMITING; Start at 15:30 Bisacodyl (Dulcolax Supp) 10 mg Q12H PRN [place] CONSTIPATION; Start 01/18/17 at 15: 30 Magnesium Hydroxide (Milk Of Mag) 30 ml BID PRN PO CONSTIPATION; Start at 15:30 Sodium Biphosphate/ Sodium Phosphate (Fleet Enema) 133 ml DAILY PRN [place] CONSTIPATION; Start 01/18/17 at 15:30 Docusate Sodium (Colace) 100 mg BID PO Last administered on 01/19/17 08:34; Admin Dose 100 MG; Start 01/18/17 at 21:00 Diphenhydramine HCl (Benadryl) 25 mg Q6H PRN PO PRURITUS; Start 01/18/17 at 15: 30 Aspirin (Ecotrin) 325 mg BID PO Last administered on 01/19/17 08:34; Admin Dose 325 MG; Start 01/19/17 at 09:00 Pantoprazole (Protonix Tab) 40 mg BID@06,18 PO Last administered on 01/19/17t 05:34; Admin Dose 40 MG; Start 01/18/17 at 18:00 CRYSTAL GOODSON MD January 19, 2017 13:59
[2017-01-19] MEDS: DEXTROSE 5%-0.45% NACL 1,000 ML IV SCH (18:00)
[2017-01-19 20:09] VITALS: BP 103/54; PULSE 98; RESP 18
[2017-01-19 21:42] VITALS: BP 105/68; RESP 18
[2017-01-19] MEDS: ACETAMINOPHEN 325 MG TAB PO PRN (22:33)
[2017-01-19] MEDS: LEVOFLOXACIN 500 MG TAB PO SCH (22:33)
--- NOTE | 2017-01-19 23:03 | RADRPT ---
PROCEDURE: XR Chest. CLINICAL INDICATION: Fever. Patient is status post left hip arthroplasty. TECHNIQUE: PA and Lateral views of the chest were obtained. COMPARISON: Chest plain film series dated 01/18/2017. FINDINGS: The cardiomediastinal silhouette is within normal limits. Calcifications in the thoracic aorta. Hyp erinflation suggests a degree of COPD with changes of centrolobular emphysema. Lungs otherwise benjamin r. No signs of pleural fluid or pneumothorax are seen. The osseous structures and soft tissues are u nremarkable. IMPRESSION: No evidence for active cardiopulmonary disease. RPTAT: [facility]U Physician Jose Date Time Electronically viewed and signed by Physician Jose on 01/19/2017 23:03 RS/
[2017-01-20] VITALS (8 sets, daily range): BP systolic 89–136; BP diastolic 50–75; PULSE 53–92; RESP 18–20
[2017-01-20 05:20] LABS: ADD SCAN DIFF NO
[2017-01-20] MEDS: PANTOPRAZOLE (EC) 40 MG TAB PO SCH ×2 (05:20→18:09)
[2017-01-20] MEDS: LEVOFLOXACIN 500 MG TAB PO SCH (05:21)
[2017-01-20] MEDS: traMADol 50 MG TAB PO SCH ×4 (05:21→23:51)
[2017-01-20 05:29] LABS: BASOPHILS % 0.2 % (0.0-2.0); EOSINOPHILS % 0.3 % (0.0-7.0); HEMATOCRIT 21.7 % (37.0-47.0); HEMOGLOBIN 7.3 g/dl (12.0-16.0); LYMPHOCYTES # 0.9 10^3/ul (0.8-2.9); LYMPHOCYTES % 15.5 % (15.0-51.0); MEAN CORPUSCULAR HEMOGLOBIN 29.9 pg (29.0-33.0); MEAN CORPUSCULAR HGB CONC 33.6 g/dl (32.0-37.0); MEAN CORPUSCULAR VOLUME 88.9 fl (82.0-101.0); MEAN PLATELET VOLUME 10.3 fl (7.4-10.4); MONOCYTE # 0.4 10^3/ul (0.3-0.9); MONOCYTES % 6.7 % (0.0-11.0); NEUTROPHIL # 4.6 10^3/ul (1.6-7.5); PLATELET COUNT 100 10^3/UL (140-415); RED BLOOD COUNT 2.44 10^6/ul (4.20-5.40); RED CELL DISTRIBUTION WIDTH 12.8 % (11.5-14.5)
[2017-01-20 05:55] LABS: CALCIUM 8.4 mg/dl (8.4-10.2); CREATININE 0.76 mg/dl (0.44-1.00); POTASSIUM 3.8 mmol/L (3.5-5.1)
[2017-01-20] MEDS: LACTATED RINGER'S 1,000 ML IV SCH ×3 (06:07→23:18)
[2017-01-20] MEDS: ASPIRIN (EC) 325 MG TAB PO SCH ×2 (08:58→20:47)
[2017-01-20] MEDS: DOCUSATE SODIUM 100 MG CAP PO SCH ×2 (08:58→20:47)
[2017-01-20 09:10] LABS: ADD UMIC YES; URINE BILIRUBIN (Dip) NEGATIVE (NEGATIVE); URINE BLOOD (Dip) TRACE (NEGATIVE); URINE COLOR LT. YELLOW (YELLOW); URINE GLUCOSE (Dip) NEGATIVE (NEGATIVE); URINE KETONES (Dip) NEGATIVE (NEGATIVE); URINE LEUKOCYTE ESTERASE (Dip) NEGATIVE (NEGATIVE); URINE NITRITE (Dip) NEGATIVE (NEGATIVE); URINE TOTAL PROTEIN (Dip) NEGATIVE (NEGATIVE); URINE UROBILINOGEN (Dip) 0.2 E.U./dL (0.1-1.0)
--- NOTE | 2017-01-20 11:31 | PN ---
Date/Time of Note Date/Time of Note DATE: 01/20/17 TIME: 11:29 Assessment/Plan Lines/Catheters IV Catheter Type (from Nrsg): Saline Lock Butler in Place (from Nrsg): Yes Assessment/Plan Assessment/Plan Stable POD #2, s/p left anterior JUVE -pain meds as needed -ASA/SCDs for DVT prophylaxis -H&H low. Will transfuse 2 units PRBCs -fever likely from atelectasis. Encourage IC 10x hour -OOB with PT -dressing changed -possible discharge home tomorrow or Sunday Subjective 24 Hr Interval Summary No acute overnight events. Having mild pain today. H&H low, transfusion started by medicine team. Also had fever last night and started on Levaquin. Fever likely from atelectasis and has now normalized. Progressing well with PT. Exam/Review of Systems Vital Signs Vitals Vital Signs Date Time Temp Pulse Resp B/P Pulse Ox O2 Delivery O2 Flow Rate FiO2 01/20/17 07:00 98.9 73 18 89/50 96 01/20/17 05:31 Room Air 01/20/17 00:03 2.0 Intake and Output 01/19/17 01/19/17 01/20/17 15:00 23:00 07:00 Intake Total 50 ml 2620 ml 1200 ml Output Total 1500 ml 1000 ml Balance 50 ml 1120 ml 200 ml Exam Free Text/Dictation Dressing dry Incision clean, dry, and intact without redness or drainage 12/29 Quadriceps, Tibialis Anterior, EHL, Gastroc, Soleus, Peroneals Normal sensation Palpable DT/PT, CR <2 sec No distal edema Results Result Diagram: 01/20/17 0502 01/20/17 0502 LUKE LAMAS PA-C January 20, 2017 11:31
[2017-01-20] MEDS: DEXTROSE 5%-0.45% NACL 1,000 ML IV SCH (14:00)
[2017-01-20] MEDS: HYDROmorphONE 1 MG/ML SYG IV PRN (14:46)
--- NOTE | 2017-01-20 17:39 | CONS ---
Date/Time of Note Date/Time of Note DATE: 01/20/17 TIME: 17:31 Assessment/Plan Assessment/Plan Chief Complaint/Hosp Course 1. she is 2 days post op a L JUVE for hip fracture . She had a fever last night . No obvious infection . I will stop Levaquin 2. Hemoglobin was down to 7.3 this morning and she received 2 unit blood transfusion today . 3. She is overall feeling better . Problems: Consultation Date/Type/Reason Admit Date/Time January 18, 2017 at 02:08 24 HR Interval Summary Free Text/Dictation She is awake and responsive . She is just finishing her second unit of blood transfusion . She had a fever to 101.6 last night . She denies cough . Constitutional: improved, no complaints Exam/Review of Systems Vital Signs Vitals Vital Signs Date Time Temp Pulse Resp B/P Pulse Ox O2 Delivery O2 Flow Rate FiO2 01/20/17 12:40 99.5 86 20 115/54 98 Room Air 01/20/17 00:03 2.0 Intake and Output 01/19/17 01/19/17 01/20/17 14:59 22:59 06:59 Intake Total 50 ml 2620 ml 1200 ml Output Total 1500 ml 1000 ml Balance 50 ml 1120 ml 200 ml Exam Constitutional: alert, oriented, well developed Respiratory: clear to auscultation, normal air movement Cardiovascular: regular rate and rhythm Gastrointestinal: soft Musculoskeletal: nl extremities to inspection Results Result Diagram: 01/20/17 0502 01/20/17 0502 Results 24 hrs Laboratory Tests Test 01/20/17 05:02 01/20/17 05:15 White Blood Count 6.0 # Red Blood Count 2.44 #L Hemoglobin 7.3 L Hematocrit 21.7 L Mean Corpuscular Volume 88.9 Mean Corpuscular Hemoglobin 29.9 Mean Corpuscular Hemoglobin Concent 33.6 Red Cell Distribution Width 12.8 Platelet Count 100 #L Mean Platelet Volume 10.3 Neutrophils % 77.0 Lymphocytes % 15.5 Monocytes % 6.7 Eosinophils % 0.3 Basophils % 0.2 Nucleated Red Blood Cells % 0.0 Neutrophils # 4.6 Lymphocytes # 0.9 Monocytes # 0.4 Eosinophils # 0.0 Basophils # 0.0 Nucleated Red Blood Cells # 0.0 Sodium Level 136 Potassium Level 3.8 Chloride Level 104 Carbon Dioxide Level 30 Anion Gap 6 L Blood Urea Nitrogen 12 Creatinine 0.76 Glucose Level 112 Calcium Level 8.4 Urine Color LT. YELLOW Urine Clarity CLEAR Urine pH 6.5 Urine Specific [place] <=1.005 L Urine Ketones NEGATIVE Urine Nitrite NEGATIVE Urine Bilirubin NEGATIVE Urine Urobilinogen 0.2 E.U./dL Urine Leukocyte Esterase NEGATIVE Urine Microscopic RBC 2-5 Urine Microscopic WBC 2-5 Urine Hemoglobin TRACE Urine Glucose NEGATIVE Urine Total Protein NEGATIVE Medications Medications Current Medications Hydromorphone HCl 1 mg 1 mg Q2H PRN IV PAIN LEVEL 4-7 Last administered on 01/18 08:59; Admin Dose 1 MG; Start 01/18/17 at 02:00 Dextrose/Sodium Chloride 1,000 ml @ 50 mls/hr Q20H IV Last administered on 03:45; Admin Dose 50 MLS/HR; Start 01/18/17 at 02:00 Lactated Ringer's (Lr) 1,000 ml @ 125 mls/hr Q8H IV Last administered on 05:35; Admin Dose 125 MLS/HR; Start 01/18/17 at 15:18 Tramadol HCl (Ultram) 50 mg Q6 PO Last administered on 01/20/17 11:45; Admin Dose 50 MG; Start 01/18/17 at 15:00; Stop 01/21/17 at 14:59 Acetaminophen/ Hydrocodone Bitart ([place] (5/325)) 1 tab Q4H PRN PO PAIN LEVEL 1 -3; Start 01/18/17 at 15:30 Acetaminophen/ Hydrocodone Bitart ([place] (5/325)) 2 tab Q4H PRN PO PAIN LEVEL 4 -7; Start 01/18/17 at 15:30 Hydromorphone HCl (Dilaudid) 1 mg Q3H PRN IV PAIN LEVEL 8-10 Last administered on 01/20/17 14:46; Admin Dose 1 MG; Start 01/18/17 at 15:30 Ondansetron HCl (Zofran Inj) 4 mg Q6H PRN IV NAUSEA AND/OR VOMITING; Start at 15:30 Bisacodyl (Dulcolax Supp) 10 mg Q12H PRN [place] CONSTIPATION; Start 01/18/17 at 15: 30 Magnesium Hydroxide (Milk Of Mag) 30 ml BID PRN PO CONSTIPATION; Start at 15:30 Sodium Biphosphate/ Sodium Phosphate (Fleet Enema) 133 ml DAILY PRN [place] CONSTIPATION; Start 01/18/17 at 15:30 Docusate Sodium (Colace) 100 mg BID PO Last administered on 01/20/17 08:58; Admin Dose 100 MG; Start 01/18/17 at 21:00 Diphenhydramine HCl (Benadryl) 25 mg Q6H PRN PO PRURITUS; Start 01/18/17 at 15: 30 Aspirin (Ecotrin) 325 mg BID PO Last administered on 01/20/17 08:58; Admin Dose 325 MG; Start 01/19/17 at 09:00 Pantoprazole (Protonix Tab) 40 mg BID@06,18 PO Last administered on 01/20/17 05:20; Admin Dose 40 MG; Start 01/18/17 at 18:00 Acetaminophen (Tylenol Tab) 650 mg Q6H PRN PO PAIN AND OR ELEVATED TEMP Last administered on 01/19/17 22:33; Admin Dose 650 MG; Start 01/19/17 at 22:30 Levofloxacin (Levaquin) 500 mg DAILY@06 PO Last administered on 01/20/17 05:21 ; Admin Dose 500 MG; Start 01/19/17 at 22:30 WINDY TORRES MD January 20, 2017 17:39
[2017-01-20] MEDS: ACETAMINOPHEN 325 MG TAB PO PRN (18:09)
[2017-01-21 05:51] LABS: HEMATOCRIT 28.7 % (37.0-47.0); HEMOGLOBIN 9.8 g/dl (12.0-16.0)
[2017-01-21 06:20] LABS: POTASSIUM 3.8 mmol/L (3.5-5.1)
[2017-01-21 06:22] LABS: CREATININE 0.7 mg/dl (0.44-1.00)
[2017-01-21 06:23] LABS: CALCIUM 8.4 mg/dl (8.4-10.2)
[2017-01-21] MEDS: traMADol 50 MG TAB PO SCH ×2 (06:53→12:00)
[2017-01-21] MEDS: ACETAMINOPHEN 325 MG TAB PO PRN ×3 (06:53→18:59)
[2017-01-21] MEDS: PANTOPRAZOLE (EC) 40 MG TAB PO SCH ×2 (06:53→17:47)
[2017-01-21] MEDS: LACTATED RINGER'S 1,000 ML IV SCH ×3 (07:18→23:18)
[2017-01-21 08:03] VITALS: BP 110/59; RESP 18
--- NOTE | 2017-01-21 08:43 | PN ---
Date/Time of Note Date/Time of Note DATE: 01/21/17 TIME: 08:41 Assessment/Plan Lines/Catheters IV Catheter Type (from Nrsg): Saline Lock Butler in Place (from Nrsg): Yes Assessment/Plan Assessment/Plan Stable POD #3, s/p left anterior JUVE -pain meds as needed -ASA/SCDs for DVT prophylaxis -OOB with PT -dressing changed -check AM labs -will plan to discharge home tomorrow Subjective 24 Hr Interval Summary No acute overnight events. H&H improved after blood transfusion today. Denies significant hip pain. VSS, afebrile. Would like to go home tomorrow. Exam/Review of Systems Vital Signs Vitals Vital Signs Date Time Temp Pulse Resp B/P Pulse Ox O2 Delivery O2 Flow Rate FiO2 01/21/17 08:03 98.1 67 18 110/59 91 01/21/17 01:57 21 01/20/17 17:55 Room Air 01/20/17 00:03 2.0 Intake and Output 01/20/17 01/20/17 01/21/17 15:00 23:00 07:00 Intake Total 1880 ml Output Total 1200 ml Balance 680 ml Exam Free Text/Dictation Dressing dry Incision clean, dry, and intact without redness or drainage 12/29 Quadriceps, Tibialis Anterior, EHL, Gastroc, Soleus, Peroneals Normal sensation Palpable DT/PT, CR <2 sec No distal edema Results Result Diagram: 01/21/177 01/21/17 043 LUKE LAMAS PA-C January 21, 2017 08:43
[2017-01-21] MEDS: DOCUSATE SODIUM 100 MG CAP PO SCH ×2 (09:59→21:08)
[2017-01-21] MEDS: ASPIRIN (EC) 325 MG TAB PO SCH ×2 (09:59→21:08)
[2017-01-21] MEDS: DEXTROSE 5%-0.45% NACL 1,000 ML IV SCH (10:00)
--- NOTE | 2017-01-21 15:04 | CONS ---
Date/Time of Note Date/Time of Note DATE: 01/21/17 TIME: 14:57 Assessment/Plan Assessment/Plan Chief Complaint/Hosp Course 1. she is 3 days post op a L JUVE for hip fracture . She had a low grade fever last night . No obvious infection . Afebrile today . 2. Hemoglobin is up to 9.8 today after 2 unit blood transfusion yesterday . 3. She is overall feeling better and is up with walker. Problems: Consultation Date/Type/Reason Admit Date/Time January 18, 2017 at 02:08 24 HR Interval Summary Free Text/Dictation She is up walking and feels well . Constitutional: improved, no complaints Exam/Review of Systems Vital Signs Vitals Vital Signs Date Time Temp Pulse Resp B/P Pulse Ox O2 Delivery O2 Flow Rate FiO2 01/21/17 08:03 98.1 67 18 110/59 91 01/21/17 01:57 21 01/20/17 17:55 Room Air 01/20/17 00:03 2.0 Intake and Output 01/20/17 01/20/17 01/21/17 15:00 23:00 07:00 Intake Total 1880 ml Output Total 1200 ml Balance 680 ml Exam Constitutional: alert, oriented, well developed Respiratory: clear to auscultation, normal air movement Cardiovascular: regular rate and rhythm Gastrointestinal: non-tender, soft Musculoskeletal: nl extremities to inspection Results Result Diagram: 01/21/17 0437 01/21/17 0437 Results 24 hrs Laboratory Tests Test 01/21/17 04:37 Hemoglobin 9.8 #L Hematocrit 28.7 #L Sodium Level 136 Potassium Level 3.8 Chloride Level 105 Carbon Dioxide Level 31 Anion Gap 4 L Blood Urea Nitrogen 11 Creatinine 0.70 Glucose Level 112 Calcium Level 8.4 Medications Medications Current Medications Hydromorphone HCl 1 mg 1 mg Q2H PRN IV PAIN LEVEL 4-7 Last administered on 01/18 08:59; Admin Dose 1 MG; Start 01/18/17 at 02:00 Dextrose/Sodium Chloride 1,000 ml @ 50 mls/hr Q20H IV Last administered on 03:45; Admin Dose 50 MLS/HR; Start 01/18/17 at 02:00 Lactated Ringer's (Lr) 1,000 ml @ 125 mls/hr Q8H IV Last administered on 05:35; Admin Dose 125 MLS/HR; Start 01/18/17 at 15:18 Tramadol HCl (Ultram) 50 mg Q6 PO Last administered on 01/21/17 06:53; Admin Dose 50 MG; Start 01/18/17 at 15:00; Stop 01/21/17 at 14:59 Acetaminophen/ Hydrocodone Bitart ([place] (5/325)) 1 tab Q4H PRN PO PAIN LEVEL 1 -3; Start 01/18/17 at 15:30 Acetaminophen/ Hydrocodone Bitart ([place] (5/325)) 2 tab Q4H PRN PO PAIN LEVEL 4 -7; Start 01/18/17 at 15:30 Ondansetron HCl (Zofran Inj) 4 mg Q6H PRN IV NAUSEA AND/OR VOMITING; Start at 15:30 Bisacodyl (Dulcolax Supp) 10 mg Q12H PRN [place] CONSTIPATION; Start 01/18/17 at 15: 30 Magnesium Hydroxide (Milk Of Mag) 30 ml BID PRN PO CONSTIPATION; Start at 15:30 Sodium Biphosphate/ Sodium Phosphate (Fleet Enema) 133 ml DAILY PRN [place] CONSTIPATION; Start 01/18/17 at 15:30 Docusate Sodium (Colace) 100 mg BID PO Last administered on 01/21/17 09:59; Admin Dose 100 MG; Start 01/18/17 at 21:00 Diphenhydramine HCl (Benadryl) 25 mg Q6H PRN PO PRURITUS; Start 01/18/17 at 15: 30 Aspirin (Ecotrin) 325 mg BID PO Last administered on 01/21/17 09:59; Admin Dose 325 MG; Start 01/19/17 at 09:00 Pantoprazole (Protonix Tab) 40 mg BID@,18 PO Last administered on 01/21/17 06:53; Admin Dose 40 MG; Start 01/18/17 at 18:00 Acetaminophen (Tylenol Tab) 650 mg Q6H PRN PO PAIN AND OR ELEVATED TEMP Last administered on 01/21/17 12:28; Admin Dose 650 MG; Start 01/19/17 at 22:30 WINDY TORRES MD January 21, 2017 15:04
[2017-01-21 19:40] VITALS: BP 116/59; RESP 18
[2017-01-21 20:42] LABS: ADD UMIC YES; URINE BILIRUBIN (Dip) NEGATIVE (NEGATIVE); URINE BLOOD (Dip) TRACE (NEGATIVE); URINE COLOR LT. YELLOW (YELLOW); URINE GLUCOSE (Dip) NEGATIVE (NEGATIVE); URINE KETONES (Dip) NEGATIVE (NEGATIVE); URINE LEUKOCYTE ESTERASE (Dip) 1+ (NEGATIVE); URINE NITRITE (Dip) NEGATIVE (NEGATIVE); URINE TOTAL PROTEIN (Dip) NEGATIVE (NEGATIVE); URINE UROBILINOGEN (Dip) 0.2 E.U./dL (0.1-1.0)
[2017-01-21 21:38] LABS: BACTERIA,URINE MODERATE; SQUAMOUS EPITHELIAL CELL,UR FEW
[2017-01-22] MEDS: DEXTROSE 5%-0.45% NACL 1,000 ML IV SCH (05:19)
[2017-01-22 05:23] LABS: ADD SCAN DIFF NO
[2017-01-22] MEDS: PANTOPRAZOLE (EC) 40 MG TAB PO SCH ×2 (05:29→18:50)
[2017-01-22 05:32] LABS: BASOPHILS % 0.5 % (0.0-2.0); EOSINOPHILS # 0.2 10^3/ul (0.0-0.5); EOSINOPHILS % 2.9 % (0.0-7.0); HEMATOCRIT 31.7 % (37.0-47.0); HEMOGLOBIN 10.8 g/dl (12.0-16.0); LYMPHOCYTES # 1.4 10^3/ul (0.8-2.9); LYMPHOCYTES % 25.7 % (15.0-51.0); MEAN CORPUSCULAR HEMOGLOBIN 29.8 pg (29.0-33.0); MEAN CORPUSCULAR HGB CONC 34.1 g/dl (32.0-37.0); MEAN CORPUSCULAR VOLUME 87.3 fl (82.0-101.0); MEAN PLATELET VOLUME 10.3 fl (7.4-10.4); MONOCYTE # 0.3 10^3/ul (0.3-0.9); MONOCYTES % 5.7 % (0.0-11.0); NEUTROPHIL # 3.6 10^3/ul (1.6-7.5); PLATELET COUNT 197 10^3/UL (140-415); RED BLOOD COUNT 3.63 10^6/ul (4.20-5.40); RED CELL DISTRIBUTION WIDTH 13.6 % (11.5-14.5); WHITE BLOOD COUNT 5.5 10^3/ul (4.8-10.8)
[2017-01-22 05:49] LABS: POTASSIUM 3.7 mmol/L (3.5-5.1)
[2017-01-22 05:51] LABS: CREATININE 0.75 mg/dl (0.44-1.00)
[2017-01-22 05:52] LABS: CALCIUM 8.8 mg/dl (8.4-10.2)
[2017-01-22] MEDS: LACTATED RINGER'S 1,000 ML IV SCH ×3 (06:35→22:30)
--- NOTE | 2017-01-22 08:16 | PN ---
Date/Time of Note Date/Time of Note DATE: 01/22/17 TIME: 08:12 Assessment/Plan Lines/Catheters IV Catheter Type (from Nrsg): Saline Lock Butler in Place (from Nrsg): No Assessment/Plan Assessment/Plan POD #4, s/p left anterior JUVE -pain meds as needed -ASA/SCDs BLE for DVT prophylaxis -OOB with PT -dressing changed -check AM labs, including CBC -will check LLE doppler for DVT -spoke with Dr. Guthrie who wants the patient to stay in the hospital until all culture results finalize. Spoke with the patient regarding her hold on discharge Subjective 24 Hr Interval Summary No acute overnight events. Concerned about "fevers" but no documented fever last night. CBC done this morning was WNL. H&H stable after blood transfusion. Would like to go home today. Exam/Review of Systems Vital Signs Vitals Vital Signs Date Time Temp Pulse Resp B/P Pulse Ox O2 Delivery O2 Flow Rate FiO2 01/22/17 08:18 99.2 77 18 123/58 96 01/21/17 01:57 21 01/20/17 17:55 Room Air 01/20/17 00:03 2.0 Intake and Output 01/21/17 01/21/17 01/22/17 15:00 23:00 07:00 Intake Total 480 ml 640 ml 1200 ml Output Total 1250 ml 400 ml 1550 ml Balance -770 ml 240 ml -350 ml Exam Free Text/Dictation Dressing dry Incision clean, dry, and intact without redness or drainage 12/29 Quadriceps, Tibialis Anterior, EHL, Gastroc, Soleus, Peroneals Normal sensation Palpable DT/PT, CR <2 sec No distal edema Results Result Diagram: 01/22/17 0430 01/22/17 043 LUKE LAMAS PA-C January 22, 2017 08:16
[2017-01-22 08:18] VITALS: BP 123/58; RESP 18
[2017-01-22] MEDS: DOCUSATE SODIUM 100 MG CAP PO SCH ×2 (09:30→21:11)
[2017-01-22] MEDS: ASPIRIN (EC) 325 MG TAB PO SCH ×2 (09:30→21:11)
--- NOTE | 2017-01-22 10:20 | RADRPT ---
PROCEDURE: US DVT. CLINICAL INDICATION: Previous left hip replacement, evaluate for deep venous thrombosis. TECHNIQUE: Multiple longitudinal and transverse images of the left lower extremity veins were obta ined with troncoso scale and color Doppler imaging. 2D grayscale measurements with compression, color D oppler flow, and augmentation was performed. The calf veins were interrogated as well. COMPARISON: No prior studies are available for comparison. FINDINGS: The left common femoral, superficial femoral and popliteal veins are normally compressible throughou t. Color flow demonstrates normal filling of the vessel. Normal waveforms are visualized and there is normal response to augmentation. IMPRESSION: 1. No evidence of a deep vein thrombosis involving the left lower extremity. RPTAT: [facility] Physician Dorina Date Time Electronically viewed and signed by Physician Dorina on 01/22/2017 10:20 /
--- NOTE | 2017-01-22 14:51 | CONS ---
Date/Time of Note Date/Time of Note DATE: 01/22/17 TIME: 14:41 Assessment/Plan Assessment/Plan Chief Complaint/Hosp Course 1. she is 4 days post op a L JUVE for hip fracture . She had a low grade fever last night . No obvious infection . Afebrile today . WBC is normal . 2. Hemoglobin is up to 10.8 today after 2 unit blood transfusion 2 days ago . 3. She has been up with PT and is making progress . Problems: Consultation Date/Type/Reason Admit Date/Time January 18, 2017 at 02:08 24 HR Interval Summary Free Text/Dictation She is feeling weak but no focal complaints . She had a low grade fever last night . Denies cough or dysuria . Exam/Review of Systems Vital Signs Vitals Vital Signs Date Time Temp Pulse Resp B/P Pulse Ox O2 Delivery O2 Flow Rate FiO2 01/22/17 08:18 99.2 77 18 123/58 96 01/21/17 01:57 21 01/20/17 17:55 Room Air 01/20/17 00:03 2.0 Intake and Output 01/21/17 01/21/17 01/22/17 15:00 23:00 07:00 Intake Total 480 ml 640 ml 1200 ml Output Total 1250 ml 400 ml 1550 ml Balance -770 ml 240 ml -350 ml Exam Constitutional: alert, oriented Respiratory: clear to auscultation, normal air movement Cardiovascular: regular rate and rhythm Gastrointestinal: soft Musculoskeletal: nl extremities to inspection Results Result Diagram: 01/22/17 0430 01/22/17 0430 Results 24 hrs Laboratory Tests Test 01/21/17 19:50 01/22/17 04:30 Urine Color LT. YELLOW Urine Clarity CLEAR Urine pH 7.5 Urine Specific [place] 1.010 Urine Ketones NEGATIVE Urine Nitrite NEGATIVE Urine Bilirubin NEGATIVE Urine Urobilinogen 0.2 E.U./dL Urine Leukocyte Esterase 1+ H Urine Microscopic RBC 2-5 Urine Microscopic WBC 2-5 Urine Squamous Epithelial Cells FEW Urine Bacteria MODERATE Urine Hemoglobin TRACE Urine Glucose NEGATIVE Urine Total Protein NEGATIVE White Blood Count 5.5 Red Blood Count 3.63 #L Hemoglobin 10.8 L Hematocrit 31.7 L Mean Corpuscular Volume 87.3 Mean Corpuscular Hemoglobin 29.8 Mean Corpuscular Hemoglobin Concent 34.1 Red Cell Distribution Width 13.6 Platelet Count 197 # Mean Platelet Volume 10.3 Neutrophils % 65.0 Lymphocytes % 25.7 Monocytes % 5.7 Eosinophils % 2.9 Basophils % 0.5 Nucleated Red Blood Cells % 0.0 Neutrophils # 3.6 Lymphocytes # 1.4 Monocytes # 0.3 Eosinophils # 0.2 Basophils # 0.0 Nucleated Red Blood Cells # 0.0 Sodium Level 141 Potassium Level 3.7 Chloride Level 108 Carbon Dioxide Level 32 H Anion Gap 5 L Blood Urea Nitrogen 9 Creatinine 0.75 Glucose Level 101 Calcium Level 8.8 Medications Medications Current Medications Hydromorphone HCl 1 mg 1 mg Q2H PRN IV PAIN LEVEL 4-7 Last administered on 01/18 08:59; Admin Dose 1 MG; Start 01/18/17 at 02:00 Dextrose/Sodium Chloride 1,000 ml @ 50 mls/hr Q20H IV Last administered on 03:45; Admin Dose 50 MLS/HR; Start 01/18/17 at 02:00 Lactated Ringer's (Lr) 1,000 ml @ 125 mls/hr Q8H IV Last administered on 05:35; Admin Dose 125 MLS/HR; Start 01/18/17 at 15:18 Acetaminophen/ Hydrocodone Bitart ([place] (5/325)) 1 tab Q4H PRN PO PAIN LEVEL 1 -3; Start 01/18/17 at 15:30 Acetaminophen/ Hydrocodone Bitart ([place] (5/325)) 2 tab Q4H PRN PO PAIN LEVEL 4 -7; Start 01/18/17 at 15:30 Ondansetron HCl (Zofran Inj) 4 mg Q6H PRN IV NAUSEA AND/OR VOMITING; Start at 15:30 Bisacodyl (Dulcolax Supp) 10 mg Q12H PRN [place] CONSTIPATION; Start 01/18/17 at 15: 30 Magnesium Hydroxide (Milk Of Mag) 30 ml BID PRN PO CONSTIPATION; Start at 15:30 Sodium Biphosphate/ Sodium Phosphate (Fleet Enema) 133 ml DAILY PRN [place] CONSTIPATION; Start 01/18/17 at 15:30 Docusate Sodium (Colace) 100 mg BID PO Last administered on 01/22/17 09:30; Admin Dose 100 MG; Start 5/25/17 at 21:00 Diphenhydramine HCl (Benadryl) 25 mg Q6H PRN PO PRURITUS; Start 01/18/17 at 15: 30 Aspirin (Ecotrin) 325 mg BID PO Last administered on 01/22/17 09:30; Admin Dose 325 MG; Start 01/19/17 at 09:00 Pantoprazole (Protonix Tab) 40 mg BID@06,18 PO Last administered on 01/22/17 05:29; Admin Dose 40 MG; Start 01/18/17 at 18:00 Acetaminophen (Tylenol Tab) 650 mg Q6H PRN PO PAIN AND OR ELEVATED TEMP Last administered on 01/21/17 18:59; Admin Dose 650 MG; Start 01/19/17 at 22:30 WINDY TORRES MD January 22, 2017 14:51
[2017-01-22] MEDS: ACETAMINOPHEN 325 MG TAB PO PRN (19:36)
[2017-01-22 20:47] VITALS: BP 95/50; RESP 18
[2017-01-23] MEDS: DEXTROSE 5%-0.45% NACL 1,000 ML IV SCH (01:56)
[2017-01-23 05:10] LABS: ADD SCAN DIFF NO
[2017-01-23 05:18] LABS: BASOPHILS % 0.6 % (0.0-2.0); EOSINOPHILS # 0.2 10^3/ul (0.0-0.5); HEMATOCRIT 31.4 % (37.0-47.0); HEMOGLOBIN 10.5 g/dl (12.0-16.0); LYMPHOCYTES # 1.5 10^3/ul (0.8-2.9); LYMPHOCYTES % 24.6 % (15.0-51.0); MEAN CORPUSCULAR HEMOGLOBIN 28.9 pg (29.0-33.0); MEAN CORPUSCULAR HGB CONC 33.4 g/dl (32.0-37.0); MEAN CORPUSCULAR VOLUME 86.5 fl (82.0-101.0); MONOCYTE # 0.5 10^3/ul (0.3-0.9); MONOCYTES % 7.3 % (0.0-11.0); NEUTROPHILS % 63.9 % (39.0-77.0); PLATELET COUNT 213 10^3/UL (140-415); RED BLOOD COUNT 3.63 10^6/ul (4.20-5.40); RED CELL DISTRIBUTION WIDTH 13.5 % (11.5-14.5); WHITE BLOOD COUNT 6.3 10^3/ul (4.8-10.8)
[2017-01-23 05:26] LABS: POTASSIUM 3.8 mmol/L (3.5-5.1)
[2017-01-23 05:28] LABS: CREATININE 0.78 mg/dl (0.44-1.00)
[2017-01-23 05:29] LABS: CALCIUM 8.8 mg/dl (8.4-10.2)
[2017-01-23] MEDS: PANTOPRAZOLE (EC) 40 MG TAB PO SCH (05:37)
[2017-01-23] MEDS: LACTATED RINGER'S 1,000 ML IV SCH (07:18)
[2017-01-23] MEDS: ACETAMINOPHEN 325 MG TAB PO PRN (07:24)
--- NOTE | 2017-01-23 08:02 | CONS ---
Date/Time of Note Date/Time of Note DATE: 01/23/17 TIME: 07:57 Assessment/Plan Assessment/Plan Chief Complaint/Hosp Course 1. she is 5 days post op a L JUVE for hip fracture . She has been afebrile for the last 24 hours . No obvious infection . WBC is normal . 2. Hemoglobin is up to 10.5 today after 2 unit blood transfusion 3 days ago . 3. She has been up with PT and is making progress . 4. she can be discharged to home today when OK with ortho Problems: Consultation Date/Type/Reason Admit Date/Time January 18, 2017 at 02:08 24 HR Interval Summary Free Text/Dictation She is feeling better today . Denies cough or dysuria . Constitutional: improved, no complaints Exam/Review of Systems Vital Signs Vitals Vital Signs Date Time Temp Pulse Resp B/P Pulse Ox O2 Delivery O2 Flow Rate FiO2 01/22/17 20:47 99.2 84 18 95/50 94 01/21/17 01:57 21 01/20/17 17:55 Room Air 01/20/17 00:03 2.0 Intake and Output 01/22/17 01/22/17 01/23/17 15:00 23:00 07:00 Intake Total 840 ml 800 ml Output Total 1150 ml 600 ml Balance -310 ml 200 ml Exam Constitutional: alert, oriented, well developed Respiratory: clear to auscultation, normal air movement Cardiovascular: regular rate and rhythm Gastrointestinal: non-tender, soft Musculoskeletal: nl extremities to inspection Results Result Diagram: 01/23/17 0438 01/23/17 0438 Results 24 hrs Laboratory Tests Test 01/23/17 04:38 White Blood Count 6.3 Red Blood Count 3.63 L Hemoglobin 10.5 L Hematocrit 31.4 L Mean Corpuscular Volume 86.5 Mean Corpuscular Hemoglobin 28.9 L Mean Corpuscular Hemoglobin Concent 33.4 Red Cell Distribution Width 13.5 Platelet Count 213 Mean Platelet Volume 10.0 Neutrophils % 63.9 Lymphocytes % 24.6 Monocytes % 7.3 Eosinophils % 3.0 Basophils % 0.6 Nucleated Red Blood Cells % 0.0 Neutrophils # 4.0 Lymphocytes # 1.5 Monocytes # 0.5 Eosinophils # 0.2 Basophils # 0.0 Nucleated Red Blood Cells # 0.0 Sodium Level 142 Potassium Level 3.8 Chloride Level 111 H Carbon Dioxide Level 28 Anion Gap 7 L Blood Urea Nitrogen 14 Creatinine 0.78 Glucose Level 116 Calcium Level 8.8 Medications Medications Current Medications Hydromorphone HCl 1 mg 1 mg Q2H PRN IV PAIN LEVEL 4-7 Last administered on 01/18 08:59; Admin Dose 1 MG; Start 01/18/17 at 02:00 Dextrose/Sodium Chloride 1,000 ml @ 50 mls/hr Q20H IV Last administered on 03:45; Admin Dose 50 MLS/HR; Start 01/18/17 at 02:00 Lactated Ringer's (Lr) 1,000 ml @ 125 mls/hr Q8H IV Last administered on 05:35; Admin Dose 125 MLS/HR; Start 01/18/17 at 15:18 Acetaminophen/ Hydrocodone Bitart ([place] (5/325)) 1 tab Q4H PRN PO PAIN LEVEL 1 -3; Start 01/18/17 at 15:30 Acetaminophen/ Hydrocodone Bitart ([place] (5/325)) 2 tab Q4H PRN PO PAIN LEVEL 4 -7; Start 01/18/17 at 15:30 Ondansetron HCl (Zofran Inj) 4 mg Q6H PRN IV NAUSEA AND/OR VOMITING; Start at 15:30 Bisacodyl (Dulcolax Supp) 10 mg Q12H PRN [place] CONSTIPATION; Start 01/18/17 at 15: 30 Magnesium Hydroxide (Milk Of Mag) 30 ml BID PRN PO CONSTIPATION; Start at 15:30 Sodium Biphosphate/ Sodium Phosphate (Fleet Enema) 133 ml DAILY PRN [place] CONSTIPATION; Start 01/18/17 at 15:30 Docusate Sodium (Colace) 100 mg BID PO Last administered on 01/22/17 21:11; Admin Dose 100 MG; Start 01/18/17 at 21:00 Diphenhydramine HCl (Benadryl) 25 mg Q6H PRN PO PRURITUS; Start 01/18/17 at 15: 30 Aspirin (Ecotrin) 325 mg BID PO Last administered on 01/22/17 21:11; Admin Dose 325 MG; Start 01/19/17 at 09:00 Pantoprazole (Protonix Tab) 40 mg BID@06,18 PO Last administered on 01/23/17 05:37; Admin Dose 40 MG; Start 01/18/17 at 18:00 Acetaminophen (Tylenol Tab) 650 mg Q6H PRN PO PAIN AND OR ELEVATED TEMP Last administered on 01/23/17 07:24; Admin Dose 650 MG; Start 01/19/17 at 22:30 WINDY TORRES MD January 23, 2017 08:02
[2017-01-23] MEDS: ASPIRIN (EC) 325 MG TAB PO SCH (08:15)
[2017-01-23] MEDS: DOCUSATE SODIUM 100 MG CAP PO SCH (08:15)
[2017-01-23 08:50] VITALS: BP 120/69; RESP 18
--- NOTE | 2017-01-23 10:44 | PN ---
Date/Time of Note Date/Time of Note DATE: 01/23/17 TIME: 10:42 Assessment/Plan Lines/Catheters IV Catheter Type (from Nrsg): Saline Lock Butler in Place (from Nrsg): No Assessment/Plan Assessment/Plan Stable POD #5, s/p left anterior JUVE -pain meds as needed -ASA/SCDs for DVT prophylaxis -OOB with PT -dressing changed -discharge home today -follow up in the office in 1 week Subjective 24 Hr Interval Summary No acute overnight events. No overnight fevers. Urine culture are negative and blood culture show no growth after 1 day. Progressing with PT. Stable per medicine and ortho to go home today. Exam/Review of Systems Vital Signs Vitals Vital Signs Date Time Temp Pulse Resp B/P Pulse Ox O2 Delivery O2 Flow Rate FiO2 01/23/17 08:50 98.5 72 18 120/69 99 01/21/17 01:57 21 01/20/17 17:55 Room Air 01/20/17 00:03 2.0 Intake and Output 01/22/17 01/22/17 01/23/17 15:00 23:00 07:00 Intake Total 840 ml 800 ml Output Total 1150 ml 600 ml Balance -310 ml 200 ml Exam Free Text/Dictation Dressing dry Incision clean, dry, and intact without redness or drainage 12/29 Quadriceps, Tibialis Anterior, EHL, Gastroc, Soleus, Peroneals Normal sensation Palpable DT/PT, CR <2 sec No distal edema Results Result Diagram: 01/23/17 0438 01/23/17 0438 LUKE LAMAS PA-C January 23, 2017 10:44
--- NOTE | 2017-01-23 18:20 | DS ---
DATE OF ADMISSION: 01/18/2017 DATE OF DISCHARGE: 01/23/2017 CONDITION ON DISCHARGE: Stable ADMITTING DIAGNOSIS: Left femoral neck fracture. DISCHARGE DIAGNOSIS: Status post left anterior total hip arthroplasty. PROCEDURE PERFORMED: Left anterior total hip arthroplasty. HOSPITAL COURSE: This is a 61-year-old female who was transferred from [facility] after she had a mechanical fall and sustained a left femoral neck fracture. X-rays demonstrated mildly displaced left femoral neck fracture, and given her age, it was thought she would benefit from a left anterior total hip arthroplasty. On 01/18/2017, the patient was admitted and taken to the operating room where she underwent a left anterior total hip arthroplasty. There were no intraoperative complications. The patient tolerated the procedure well. She was taken to the recovery room in stable condition. She was started on aspirin and SCDs for DVT prophylaxis. She did develop some postoperative anemia and required a blood transfusion. Additionally, throughout her hospital stay, she was spiking low-grade fevers. Her white count remained within normal limits and her blood and urine cultures are negative and it was deemed she was stable for discharge on postoperative day # 5. Prior to discharge, the incision was inspected and noted to be clean, dry and intact. Dressing changes were done prior to patient going home. LABORATORY ANALYSIS UPON DISCHARGE: Hemoglobin of 10.5, hematocrit 31.4. Chemistry panel was within normal limits. DISCHARGE MEDICATIONS: 1. [place] 5/325 mg. 2. Tramadol 50 mg. 3. Aspirin 325 mg. 4. Protonix 40 mg. Additionally, the patient should resume all of her normal home medications. DISCHARGE INSTRUCTIONS: The patient will be discharged home in stable condition. She is to resume her normal diet. She is weightbearing as tolerated on the left lower extremity. She will begin physical therapy with home health. She will be discharged home on the medications noted above and is to resume all of her normal home medications. The patient is to call the office or go to the emergency room for any concerns including increased redness , swelling, drainage or fever or any concerns regarding the operation or site of incision. FOLLOWUP: The patient is to follow up in the office 01/29/2017. Dictated By: LUKE ROTH/NO Conf#: [id number] DID#: [id number] [facility]
== END 2017-01-23 12:10 | disposition home health service (06) | DRG 470 ==
LOC: E/R 01:44 → MS1 02:08
PROVIDERS: ADMIT Internal Medicine; ATTEND Internal Medicine
PROC: 0SRB04A Replacement of Left Hip Joint with Ceramic on Polyethylene Synthetic Substitute, Uncemented, Open Approach (ICD-10-PCS; principal; 2017-01-18 19:00)
DX: S72.012A Unspecified intracapsular fracture of left femur, initial encounter for closed fracture (principal); S52.502A Unspecified fracture of the lower end of left radius, initial encounter for closed fracture; D64.9 Anemia, unspecified; I34.1 Nonrheumatic mitral (valve) prolapse; R50.82 Postprocedural fever; W01.0XXA Fall on same level from slipping, tripping and stumbling without subsequent striking against object, initial encounter; Y92.89 Other specified places as the place of occurrence of the external cause
CPT/HCPCS: 36430; 71010; 72170; 73500; 73510; 73530; 73700; 80048; 81001; 85014; 85018; 85025; 85610; 85730; 86644; 86850; 86900; 86901; 86920; 87040; 87086; 88304; 88311; 93005; 93971; 96374; 96375; 97110; 97116; 97162; 97166; 97530; C1753; C1776; C9290; J0171; J0690; J0697; J0735; J1100; J1170; J1885; J2250; J2274; J2370; J2405; J2765; J3010; J3370; J7042; J7120; P9016

== ENCOUNTER → 2017-01-29 | Outpatient (CLI) | payer BC ==
[~2017-01-29] MED LIST: ASPI325T32 PO; HYDR-3498 PO; PANT40TA4 PO; TRAM50TA2 PO
--- NOTE | 2017-01-29 12:12 | RADRPT ---
PROCEDURE: XR pelvis/left hip. CLINICAL INDICATION: Hip pain TECHNIQUE: AP pelvis/lateral left hip view available for review. COMPARISON: 01/18/2017 FINDINGS: There is a left total hip replacement. There is no evidence of loosening of the prosthesis. There is no evidence of hardware failure. There is normal mineralization, architecture and alignment. No fr actures are identified. No osseous lesions are present. The right hip is unremarkable. The sacroi liac joints are unremarkable. The soft tissues are unremarkable. IMPRESSION: Left total hip replacement Otherwise an unremarkable examination RPTAT: [facility] .Adalid Mercado MD, MD Date Time Electronically viewed and signed by .Adalid Mercado MD, on 01/29/2017 12:12 .B/
--- NOTE | 2017-01-29 20:10 | HKNOTE ---
DATE OF SERVICE: 01/29/2017 INTERVAL HISTORY: The patient presents today for her first postoperative evaluation. She is 10 days status post left anterior total hip arthroplasty after she sustained a femoral neck fracture from a fall. She is doing very well overall. She has minimal swelling and denies any significant pain. She has only been using [id number] Tylenol for her pain management. She denies any fevers, chills, pus, or drainage. She is doing physical therapy with home health and taking aspirin as recommended. She presents today for her first postoperative evaluation. PHYSICAL EXAMINATION: Today, she is alert and oriented x4 and in no acute distress. She is here with her today. She is ambulating with a front wheel walker. Exam of the incision demonstrates it to be clean, dry, and intact. Carlos are in place. There is no erythema, pus, redness, or warmth noted. She has no pain with passive range of motion of the left hip joint. Homans sign is negative. Compartments are soft. She is neurovascularly intact distally. IMAGING: X-rays of the left hip were obtained today and reviewed by me. They demonstrate good anatomic alignment with no fracture or dislocation identified. ASSESSMENT: Ten days status post left anterior total hip arthroplasty. PLAN: The carlos were removed today and Steri-Strips were applied. She is to continue physical therapy with home health. She is to continue ambulating with a front-wheel walker and transitioning to a cane as tolerated. Additionally, she should continue seeing a hand specialist in regards to her left wrist fracture. She should continue aspirin twice daily for DVT prophylaxis. We will see her back in 4 weeks for repeat evaluation. Dictated By: LUKE LINTON for TANIKA ROTH/NO Conf#: [id number] DID#: [id number] KAITY
== END | disposition home or self-care (01) ==
LOC: HKI 11:27
PROVIDERS: ATTEND Orthopaedic Surgery
DX: Z47.1 Aftercare following joint replacement surgery (principal); Z96.642 Presence of left artificial hip joint
CPT/HCPCS: 73502; G0463

== ENCOUNTER → 2017-03-02 | Outpatient (CLI) | payer BC ==
--- NOTE | 2017-03-02 15:10 | RADRPT ---
PROCEDURE: XR Left Hip and pelvis. CLINICAL INDICATION: Left hip pain. Pelvic pain. Postop. TECHNIQUE: Two views. Frontal pelvis and lateral left hip. COMPARISON: 01/29/2017. FINDINGS: There is no fracture or dislocation. The soft tissues are normal. There is a left hip total arthroplasty which appears satisfactory. The right hip is grossly normal. There is no lytic or blastic lesion. The upper pelvis is not included on the image. IMPRESSION: 1. Satisfactory postoperative appearance of the left hip. 2. Otherwise unremarkable study. RPTAT: QQ .Terence Peters MD, Date Time Electronically viewed and signed by .Terence Peters MD, on 03/02/2017 15:10 .R/
== END | disposition home or self-care (01) ==
LOC: HKI 14:23
PROVIDERS: ATTEND Orthopaedic Surgery
DX: Z47.1 Aftercare following joint replacement surgery (principal); Z96.642 Presence of left artificial hip joint; M25.552 Pain in left hip
CPT/HCPCS: 73502